=== PATIENT | female | born 2000 | race Caucasian/White ===

== ENCOUNTER → 2023-01-19 | Emergency (ER) | payer OTHER ==
[~2023-01-19] VITALS: Ht 167.6 cm; Wt 47.1 kg
[~2023-01-19] MED LIST: FAMO-135 MT
[2023-01-19 16:52] VITALS: BP 117/75
[2023-01-19 17:28] LABS: CLARITY URINE CLEAR (CLEAR); COLOR URINE YELLOW (YELLOW); KETONES URINE 2+ (NEGATIVE); LEUKOCYTE ESTERASE URINE 1+ (NEGATIVE); NITRITE URINE NEGATIVE (NEGATIVE); OCCULT BLOOD URINE NEGATIVE (NEGATIVE); PH URINE 5.5 (4.5-8.0); PROTEIN URINE NEGATIVE (NEGATIVE); SPECIFIC GRAVITY URINE 1.021 (1.005-1.030); UROBILINOGEN URINE 0.2 E.U./dL (0.2-1.0)
== END | disposition home or self-care (01) ==
LOC: ER 19:25
DX: R07.89 Other chest pain (principal)
CPT/HCPCS: 71045; 81003; 81025; 93005; 99285